=== PATIENT | male | born 1950 | race Caucasian/White ===

== ENCOUNTER → 2017-06-19 | Outpatient (CLI) | payer MEDICARE, BC, OTHER | LOC: M.ULTRA 06-01 16:10 | DX: I63.9 Cerebral infarction, unspecified (principal); I65.23 Occlusion and stenosis of bilateral carotid arteries; R09.89 Other specified symptoms and signs involving the circulatory and respiratory systems; I25.10 Atherosclerotic heart disease of native coronary artery without angina pectoris; I73.9 Peripheral vascular disease, unspecified; I25.2 Old myocardial infarction ==

== ENCOUNTER → 2018-07-18 | Outpatient (CLI) | payer MEDICARE, BC, OTHER ==
--- NOTE | 2018-07-18 16:10 | EKG ---
[place] [address] ELECTROCARDIOGRAM REPORT Name: NORMANCECELIA Ainsley Room: [facility]#: [id number] Admission: 07/18/18 Attend Phys: Deni Barnes MD Discharge: Date of : 52 Report #: [id number] THIS REPORT FOR: //name// [facility] Test Date: 2018-07-18 Test Time: 11:12:13 Pat Name: CECELIA AUSTIN Department: Room: Gender: M Greige Goods Marker: : 1950 Requested By: Deni Barnes Order Number: [id number] Reading : Seferino Robin Measurements Intervals [place] Rate: 54 P: 38 WA: 172 QRS: -13 QRSD: 96 T: -17 QT: 393 QTc: 373 Interpretive Statements Sinus rhythm Abnormal R-wave progression, early transition Left ventricular hypertrophy Inferior infarct, age indeterminate No previous ECG available for comparison Electronically Signed On 07-18-2018 16:10:26 MEDICAL CLERICAL ASSISTANT by Seferino Robin [email or web address] <ELECTRONICALLY SIGNED> By: Seferino Robin MD, [facility] 07/18/18 1610 1112 111 Seferino Robin MD, FACC /EPI
== END ==
LOC: M.CRD 10:31
DX: I51.7 Cardiomegaly (principal)

== ENCOUNTER → 2018-07-19 | Outpatient (CLI) | payer MEDICARE, BC, OTHER | LOC: M.RAD 11:12 | DX: R05 Cough (principal) ==